=== PATIENT | female | born 1950 | race Caucasian/White ===

== ENCOUNTER 2018-05-29 10:34 | Outpatient (CLI) | payer MEDICARE, OTHER ==
[~2018-05-29 10:34] MED LIST: BUDE10.2; CLON0.5T; FENO67CA; MELO15TA13; MIRT30TA; MONT10TA22 PO; PRAV80TA; THEO200T21; TIOT18CA3
== END 2018-05-29 23:59 | disposition home or self-care (01) ==
LOC: MRI 10:34
DX: S83.242A Other tear of medial meniscus, current injury, left knee, initial encounter (principal); M51.16 Intervertebral disc disorders with radiculopathy, lumbar region; M47.27 Other spondylosis with radiculopathy, lumbosacral region; M48.061 Spinal stenosis, lumbar region without neurogenic claudication; I71.4 Abdominal aortic aneurysm, without rupture; X58.XXXA Exposure to other specified factors, initial encounter; Y93.89 Activity, other specified; Y92.89 Other specified places as the place of occurrence of the external cause; Y99.8 Other external cause status
CPT/HCPCS: 72148-TC; 73721-TC